=== PATIENT | female | born 1960 | race Caucasian/White ===

== ENCOUNTER 2016-10-24 23:14 | Emergency (ER) | payer OTHER ==
[2016-10-24 23:21] VITALS: TEMP 97.9; O2SAT 94
[2016-10-24] MEDS ORDERED: IPRATROPIUM/ALBUTEROL 3 ML DEYVIAL ONE (23:32)
--- NOTE | 2016-10-24 23:38 | EDPHY ---
H & P Smoking Status: Former smoker Time Seen by Provider: 10/24/16 23:26 HPI/ROS: CHIEF COMPLAINT: Cough, shortness of breath HISTORY OF PRESENT ILLNESS: 56-year-old female presents to the emergency department feeling short of breath and having productive cough. Patient has a known history of asthma. She is typically followed by her doctor at [facility]. She saw them recently and was diagnosed with enterovirus. She was started on Spiriva. She continues to have ongoing coughing and was having difficulty breathing this evening. She did try 1 albuterol nebulizer without relief. She denies fevers or chills. She denies abdominal pain or vomiting. No diarrhea. No rash. She has now developed headache from coughing. No ill contacts. No recent travel. REVIEW OF SYSTEMS: Constitutional: No fever, no chills. Eyes: No double or blurry vision. ENT: No sore throat. Respiratory: Cough, shortness of breath Cardiac: No chest pain. Gastrointestinal: No abdominal pain, vomiting or diarrhea. Genitourinary: No dysuria. Musculoskeletal: No neck or back pain. Skin: No rashes. Neurological: headache. (Lisha Vuong) Past Medical/Surgical History: Asthma (Lisha Vuong) Social History: Has a life partner in [place] (Lisha Vuong) Physical Exam: General Appearance: Alert, no distress. Temperature 36.6, 94% on room air. Eyes: Pupils equal and round. Extraocular motions are all intact. ENT: Mouth: Mucous membranes moist. Respiratory: Diffuse expiratory wheezing throughout. No respiratory distress. Actively coughing. Cardiovascular: Regular rate and rhythm. Gastrointestinal: Abdomen is soft and nontender, no masses, no rebound or guarding, bowel sounds normal. Neurological: Alert and oriented x 3, cranial nerves II through XII grossly intact Skin: Warm and dry, no rashes. Musculoskeletal: Nontender to palpate along the cervical, thoracic or lumbar spine. Neck is supple. Extremities: Full range of motion and no peripheral edema. Psychiatric: Patient is oriented X 3, there is no agitation. (Lisha Vuong) Constitutional: Initial Vital Signs Temperature (C) 36.6 C 10/24/16 23:17 Heart Rate 80 10/24/16 23:17 Respiratory Rate 18 10/24/16 23:17 Blood Pressure 151/90 H 10/24/16 23:17 O2 Sat (%) 94 10/24/16 23:17 O2 Delivery Mode Room Air Allergies/Adverse Reactions: erythromycin base Allergy (Verified 10/24/16 23:21) Tide detergent Allergy (Uncoded 10/24/16 23:21) Home Medications: Medication Instructions Recorded Albuterol 10/24/16 Dulera 200 Mcg/5 Mcg Inhaler 10/24/16 Spiriva Inhaler (RX) 10/24/16 predniSONE 60 mg PO DAILY 4 Days 10/25/16 Medical Decision Making ED Course/Re-evaluation: 56-year-old female presents to the emergency department feeling short of breath and having ongoing cough. She has a known history of asthma. The patient was given a DuoNeb followed by albuterol nebulizer. She was feeling better although continued to have some expiratory wheezing. O2 saturation remained in the mid 90s. The patient will be started on oral prednisone. The patient does not feel that she needs an antibiotic and I would agree. She is afebrile. She was just at [facility] and they diagnosed with a viral illness. She will continue her albuterol nebulizer. She will continue oral prednisone for 5 days total. She was told to return to the emergency department if she developed fever, difficulty breathing, or if she felt worse in any way. (Lisha Vuong) PHYSICIAN DOCUMENTATION: The patient was evaluated and managed by the Physician Button Buttonhole Marker. My co- signature indicates that I have reviewed this chart and I agree with the findings and plan of care as documented. I am the secondary supervising physician. (Teresita Ritchie) Differential Diagnosis: Including but not limited to viral upper respiratory infection, bronchitis, pneumonia, influenza (Lisha Vuong) - Data Points Medications Given: Discontinued Medications Prednisone (Prednisone) 60 mg PO EDNOW ONE Stop: 10/25/16 00:11 Last Admin: 10/25/16 00:15 Dose: 60 mg Departure - Departure Disposition: Home, Routine, Self-Care Clinical Impression: Acute bronchitis Qualifiers: Bronchitis organism: unspecified organism Qualified Code(s): J20.9 - Acute bronchitis, unspecified Condition: Good Instructions: Acute Bronchitis (ED) Additional Instructions: Prednisone daily for 5 days. Continue albuterol nebulizer every 4 hours. Return to the emergency department if you develop fever, difficulty breathing, or if you feel worse in any way. Referrals: Carlita Carreon MD [Primary Care Provider] - As per Instructions Prescriptions: predniSONE 60 mg PO DAILY 4 Days
[2016-10-24] MEDS ORDERED: ALBUTEROL 3 ML DEYVIAL ONE (23:41)
[2016-10-25] MEDS ORDERED: predniSONE 20 MG TAB PO ONE (00:10)
[2016-10-25 00:22] VITALS: BP 145/92; PULSE 82; RESP 19
[2016-10-25] MEDS ORDERED: ALBUTEROL 3 ML DEYVIAL IH ONE (23:30)
[2016-10-25] MEDS ORDERED: IPRATROPIUM/ALBUTEROL 3 ML DEYVIAL IH ONE (23:30)
== END 2016-10-25 00:22 | disposition home or self-care (01) ==
DX: J20.9 Acute bronchitis, unspecified (principal); J45.909 Unspecified asthma, uncomplicated

== ENCOUNTER → 2016-10-29 | Outpatient (CLI) | payer OTHER | LOC: FIMAGING 14:57 | DX: Z12.31 Encounter for screening mammogram for malignant neoplasm of breast (principal); Z80.3 Family history of malignant neoplasm of breast | CPT/HCPCS: G0202 ==

== ENCOUNTER → 2017-06-03 | Outpatient (CLI) | payer OTHER | LOC: FIMAGING 10:40 | PROVIDERS: ATTEND Internal Medicine Pulmonary Disease | DX: Z09 Encounter for follow-up examination after completed treatment for conditions other than malignant neoplasm (principal); R91.1 Solitary pulmonary nodule ==

== ENCOUNTER 2017-06-09 09:59 | Emergency (ER) | payer OTHER ==
[2017-06-09] MEDS ORDERED: IPRATROPIUM/ALBUTEROL 3 ML DEYVIAL IH ONE (12:09)
--- NOTE | 2017-06-09 12:10 | EDPHY ---
General Narrative: CHIEF COMPLAINT: Asthma, shortness of breath HISTORY OF PRESENT ILLNESS: Patient complains of cough, wheezing over the past 2 days. This was an abrupt onset. Moderate to severe. She has been coughing so severely it is hard for to sleep. No chest pain but some shortness of breath with the wheezing. She has used her albuterol with no improvement. Went to her drill grinder yesterday. They prescribed a prednisone taper and Ceftin. She took the Ceftin but did not take the prednisone until this morning because she does not like how it makes her feel. She has no abdominal pain. No nausea or vomiting. No headache. No neck pain or stiffness. No body aches or malaise. No other associated complaints or modifying factors. REVIEW OF SYSTEMS: Ten systems reviewed and are negative unless otherwise noted in the HPI SPECIALISTS: Telemarketer Supervisor PAST MEDICAL HISTORY: Asthma SOCIAL HISTORY: Former smoker remotely. Lives locally FAMILY HISTORY: Noncontributory EXAMINATION General Appearance: Alert, no distress Head: normocephalic, atraumatic Eyes: Pupils equal and round, no conjunctival pallor or injection ENT, Mouth: Mucous membranes moist. Airway patent Neck: Normal inspection, supple, non-tender Respiratory: Scattered rhonchi. No crackles. Some wheezing expiratory. No consolidation or diminishment. No retractions or distress Cardiovascular: Regular rate and rhythm. No murmur Neurological: A&O, nonfocal, normal gait Skin: Warm and dry, no rash. No petechiae or purpura Extremities: Nontender, no pedal edema Psychiatric: Mood and affect normal DIFFERENTIAL DIAGNOSES: Including but not limited to asthma exacerbation, viral bronchitis, bacterial bronchitis, community-acquired pneumonia MDM: 12:10 p.m. Asthma exacerbation with acute bronchitis. Vital signs were well within normal limits. She started prednisone and Ceftin within the past 24 hr. She is in no acute distress. She is wheezing, that she has agreed to a nebulizer treatment. I do not appreciate any evidence of pneumonia on auscultation. She had a CT of the chest performed 1 week ago that did not show any pneumonia. I will switch the patient to dexamethasone as she does not tolerate prednisone. I would like her to continue her Ceftin. I will add Tesprince Perles for her. Re- evaluated after the nebulizer. 12:45 p.m. Patient re-evaluated. Nebulizer treatment completed. She is feeling somewhat better. Continue with the plan as above. Prescription provided. Contact primary care physician and/or drill grinder. ED precautions discussed. She is comfortable this plan and discharged home stable condition. SUPERVISION: Patient was independently examined, but I discussed the case with my secondary supervising physician Dr. Flores - History Smoking Status: Former smoker - Objective Vital Signs: Initial Vital Signs Temperature (C) 98.8 F 06/09/17 10:05 Heart Rate 84 06/09/17 10:05 Respiratory Rate 16 06/09/17 10:05 Blood Pressure 131/73 H 06/09/17 10:05 O2 Sat (%) 96 06/09/17 10:05 O2 Delivery Mode Room Air Allergies/Adverse Reactions: erythromycin base Allergy (Verified 06/09/17 10:04) Tide detergent Allergy (Uncoded 06/09/17 10:04) Home Medications: Medication Instructions Recorded Albuterol 10/24/16 Dulera 200 Mcg/5 Mcg Inhaler 10/24/16 predniSONE 60 mg PO DAILY 4 Days tab 10/25/16 Benzonatate [Tessalon Pearles (RX)] 100 mg PO Q8 PRN #15 cap 06/09/17 Dexamethasone [Decadron 4 MG (*)] 8 mg PO DAILY #4 tab 06/09/17 Medications Given: Discontinued Medications Albuterol/Ipratropium (Duoneb) 3 ml IH EDNOW ONE Stop: 06/09/17 12:10 Last Admin: 06/09/17 12:18 Dose: 3 ml Departure - Departure Disposition: Home, Routine, Self-Care Clinical Impression: Acute bronchitis Qualifiers: Bronchitis organism: unspecified organism Qualified Code(s): J20.9 - Acute bronchitis, unspecified Asthma without status asthmaticus Qualifiers: Asthma severity: unspecified severity Asthma persistence: unspecified Asthma complication type: with acute exacerbation Qualified Code(s): J45.901 - Unspecified asthma with (acute) exacerbation Condition: Good Instructions: Asthma (ED), Acute Bronchitis (ED) Additional Instructions: 1. Discontinue your prednisone 2. Dexamethasone as prescribed 3. Tessalon Perles as prescribed 4. Contact her primary care physician for follow-up 5. ED precautions as discussed Referrals: Angie Braxton MD [Primary Care Provider] - As per Instructions Prescriptions: Benzonatate [Tessalon Pearles (RX)] 100 mg PO Q8 PRN #15 cap PRN Reason: Cough, Mild Dexamethasone [Decadron 4 MG (*)] 8 mg PO DAILY #4 tab
[2017-06-09 13:10] VITALS: BP 146/89; PULSE 73; RESP 18; TEMP 99.1; O2SAT 94
== END 2017-06-09 13:10 | disposition home or self-care (01) ==
DX: J45.901 Unspecified asthma with (acute) exacerbation (principal); J20.9 Acute bronchitis, unspecified; Z87.891 Personal history of nicotine dependence

== ENCOUNTER 2017-07-01 00:32 | Emergency (ER) | payer OTHER ==
[2017-07-01] MEDS ORDERED: NS 1,000 ML IV ONE (00:48)
[2017-07-01] MEDS ORDERED: IPRATROPIUM/ALBUTEROL 3 ML DEYVIAL IH ONE (00:48)
--- NOTE | 2017-07-01 00:48 | EDPHY ---
H & P Stated Complaint: COUGH FEVER ACHES RECENT TX FOR BRONCHITIS HPI/ROS: HPI CHIEF COMPLAINT: Shortness of breath, cough, fever HISTORY OF PRESENT ILLNESS: This patient is a very pleasant 56-year-old female significant past medical history for bronchitis, his COPD as well but not on any oxygen, she presents emergency room with ongoing cough and wheezing. Patient reports that she was recently on a cruise and in [place] she just traveled back to [place] today. For the past week she has had a bronchitic sounding cough and congestion in her chest. She denies any pleuritic pain. Denies chest pain. She does state that she had a low-grade fever. She is wheezing. She gave herself a breathing treatment prior to arrival but it did not help. She presents emergency room with worsening shortness of breath. Cough. Past Medical History: Bronchitis, COPD Past Surgical History: No recent surgery Social History: Denies daily use of drugs alcohol tobacco. Family History: Noncontributory ROS REVIEW OF SYSTEMS: A comprehensive 10 point review of systems is otherwise negative aside from elements mentioned in the history of present illness. Exam Constitutional appears well nontoxic triage nursing summary reviewed, vital signs reviewed, awake/alert. 90% room air sat upon arrival. Eyes normal conjunctivae and sclera, EOMI, PERRLA. HENT normal inspection, atraumatic, moist mucus membranes, no epistaxis, neck supple/ no meningismus, no raccoon eyes. Respiratory decreased breath sounds bilaterally, audible wheezing throughout all lung acosta, crackles at bilateral bases, bronchitic sounding cough Cardiovascular rate normal, regular rhythm, no murmur, no edema, distal pulses normal. Gastrointestinal soft, non-tender, no rebound, no guarding, normal bowel sounds, no distension, no pulsatile mass. Genitourinary no CVA tenderness. Musculoskeletal no midline vertebral tenderness, full range of motion, no calf swelling, no tenderness of extremities, no meningismus, good pulses, neurovascularly intact. Skin pink, warm, & dry, no rash, skin atraumatic. Neurologic awake, alert and oriented x 3, AAOx3, moves all 4 extremities equally, motor intact, sensory intact, CN II-XII intact, normal cerebellar, normal vision, normal speech. Psychiatric normal mood/affect. Heme/Lymph/Immune no lymphadenopathy. Differential Diagnosis: Includes but is not limited to in a particular order acute bronchitis, reactive airway disease, pneumothorax, pneumonia, influenza, viral syndrome, viral pneumonia, bacterial pneumonia Medical Decision Making: Plan for this patient IV establishment with blood draw , IV fluid bolus, DuoNeb breathing treatment, IV Solu-Medrol, two view chest x- ray, re-evaluate. Re-evaluation: 0248: On re-examination at this time the patient is feeling much better with DuoNeb breathing treatment. Not 100%. Her initial room air saturation was 90% . Her check x-ray does not show focal pneumonia. I do not appreciate a dense infiltrate. She has noted be influenza B positive. She has had symptoms for approximately 5-6 days. She is not a candidate for Tamiflu. However I do feel that she should go home with an albuterol inhaler and prednisone burst. Additionally return precautions have been discussed with the patient. She understands return if she feels worsening shortness of breath, high fever, vomiting or questions or concerns. Additionally recommend she stays well hydrated drink lots of fluids, Tylenol Motrin for pain and fever control. Return precautions emphasized. Source: Patient - Personal History Current Tetanus/Diphtheria Vaccine: Yes Current Tetanus Diphtheria and Acellular Pertussis (TDAP): Yes - Medical/Surgical History Hx Asthma: Yes Hx Chronic Respiratory Disease: Yes Hx Diabetes: No Hx Cardiac Disease: No Hx Renal Disease: No Hx Cirrhosis: No Hx Alcoholism: No Hx HIV/AIDS: No Hx Splenectomy or Spleen Trauma: No Other PMH: COPD, asthma, - Social History Smoking Status: Former smoker Constitutional: Initial Vital Signs Temperature (C) 37.0 C 07/01/17 00:34 Heart Rate 91 07/01/17 00:34 Respiratory Rate 18 07/01/17 00:34 Blood Pressure 130/86 H 07/01/17 00:34 O2 Sat (%) 90 L 07/01/17 00:34 O2 Delivery Mode Room Air Allergies/Adverse Reactions: erythromycin base Allergy (Verified 07/01/17 00:38) Tide detergent Allergy (Uncoded 07/01/17 00:38) Home Medications: Medication Instructions Recorded Albuterol [Proventil Inhaler HFA 1 - 2 puffs IH Q4H #1 mdi 07/01/17 (*)] Albuterol [Ventolin Hfa Inhaler] 200 puffs IH 07/01/17 Doxycycline Hyclate 100 mg PO 07/01/17 Fluticasone/Vilanterol [Breo 1 each IH 07/01/17 Ellipta 100-25 Mcg INH] guaiFENesin/PSEUDOEPHEDRNE HCL 07/01/17 [Mucinex D ER Tablet] predniSONE 60 mg PO DAILY #15 tab 07/01/17 Medical Decision Making - Data Points Laboratory Results: Laboratory Results 07/01/17 01:00 07/01/17 01:00 07/01/17 07/01/17 07/01/17 01:00 01:00 00:35 WBC 4.59 10^3/uL 10^3/uL (3.80-9.50) RBC 4.54 10^6/uL 10^6/uL (4.18-5.33) Hgb 14.1 g/dL g/dL (12.6-16.3) Hct 42.2 % % (38.0-47.0) MCV 93.0 fL fL (81.5-99.8) MCH 31.1 pg pg (27.9-34.1) MCHC 33.4 g/dL g/dL (32.4-36.7) RDW 12.9 % % (11.5-15.2) Plt Count 150 10^3/uL 10^3/uL (150-400) MPV 10.8 fL fL (8.7-11.7) Neut % (Auto) 65.2 % % (39.3-74.2) Lymph % (Auto) 25.1 % % (15.0-45.0) Kings % (Auto) 6.5 % % (4.5-13.0) Eos % (Auto) 2.6 % % (0.6-7.6) Baso % (Auto) 0.4 % % (0.3-1.7) Nucleat RBC Rel Count 0.0 % % (0.0-0.2) Absolute Neuts (auto) 2.99 10^3/uL 10^3/uL (1.70-6.50) Absolute Lymphs (auto) 1.15 10^3/uL 10^3/uL (1.00-3.00) Absolute Monos (auto) 0.30 10^3/uL 10^3/uL (0.30-0.80) Absolute Eos (auto) 0.12 10^3/uL 10^3/uL (0.03-0.40) Absolute Basos (auto) 0.02 10^3/uL 10^3/uL (0.02-0.10) Absolute Nucleated RBC 0.00 10^3/uL 10^3/uL (0-0.01) Immature Gran % 0.2 % % (0.0-1.1) Immature Gran # 0.01 10^3/uL 10^3/uL (0.00-0.10) Sodium 145 mEq/L H mEq/L (134-144) Potassium 3.6 mEq/L mEq/L (3.5-5.2) Chloride 107 mEq/L mEq/L (97-110) Carbon Dioxide 27 mEq/l mEq/l (22-31) Anion Gap 11 mEq/L mEq/L (8-16) BUN 15 mg/dL mg/dL (7-23) Creatinine 0.8 mg/dL mg/dL (0.6-1.0) Estimated GFR > 60 Glucose 121 mg/dL H mg/dL (70-100) Calcium 9.1 mg/dL mg/dL (8.5-10.4) Nasal Influenza A PCR NEGATIVE FOR FLU A (NEGATIVE) Nasal Influenza B PCR FLU B DETECTED (NEGATIVE) Influenza A,B Rapid 07/01/17 00:35 WBC RBC Hgb Hct MCV MCH MCHC RDW Plt Count MPV Neut % (Auto) Lymph % (Auto) Kings % (Auto) Eos % (Auto) Baso % (Auto) Nucleat RBC Rel Count Absolute Neuts (auto) Absolute Lymphs (auto) Absolute Monos (auto) Absolute Eos (auto) Absolute Basos (auto) Absolute Nucleated RBC Immature Gran % Immature Gran # Sodium Potassium Chloride Carbon Dioxide Anion Gap BUN Creatinine Estimated GFR Glucose Calcium Nasal Influenza A PCR Nasal Influenza B PCR Influenza A,B Rapid Cancelled Medications Given: Discontinued Medications Albuterol/Ipratropium (Duoneb) 3 ml IH EDNOW ONE Stop: 07/01/17 00:49 Last Admin: 07/01/17 01:02 Dose: 3 ml Sodium Chloride (Ns) 1,000 mls @ 0 mls/hr IV ONCE ONE; Wide Open PRN Reason: Protocol Stop: 07/01/17 00:49 Last Admin: 07/01/17 01:02 Dose: 1,000 mls Methylprednisolone Sodium Succinate (Solu-Medrol) 125 mg IVP EDNOW ONE Stop: 07/01/17 00:53 Last Admin: 07/01/17 01:02 Dose: 125 mg Oxycodone/Acetaminophen (Percocet 5/325) 1 tab PO EDNOW ONE Stop: 07/01/17 01:12 Last Admin: 07/01/17 01:14 Dose: 1 tab Departure - Departure Disposition: Home, Routine, Self-Care Clinical Impression: Bronchitis, Influenza Condition: Good Instructions: Influenza (ED), Acute Bronchitis (ED) Additional Instructions: 1. Drink lots of fluids stay well-hydrated. 2. Albuterol inhaler 2 puffs every 4 hr as needed. 3. Return emergency room if you have worsening symptoms questions or concerns. Referrals: Angie Braxton MD [Primary Care Provider] - As per Instructions Prescriptions: Albuterol [Proventil Inhaler HFA (*)] 1 - 2 puffs IH Q4H #1 mdi predniSONE 60 mg PO DAILY #15 tab
[2017-07-01] MEDS ORDERED: methylPREDNISolone SOD SUCC 125 MG/2 ML VIAL IVP ONE (00:52)
[2017-07-01] MEDS ORDERED: OXYCODONE/APAP 5/325 TAB PO ONE (01:11)
[2017-07-01] MEDS ORDERED: OXYCODONE/APAP 5/325 TAB ONE (01:12)
[2017-07-01 01:13] LABS: PLATELET COUNT 150 10^3/uL (150-400)
[2017-07-01 02:56] VITALS: BP 124/79; PULSE 81; RESP 16; TEMP 98.1; O2SAT 93
== END 2017-07-01 03:06 | disposition home or self-care (01) ==
DX: J11.1 Influenza due to unidentified influenza virus with other respiratory manifestations (principal); J40 Bronchitis, not specified as acute or chronic; E86.9 Volume depletion, unspecified; J44.9 Chronic obstructive pulmonary disease, unspecified; Z87.891 Personal history of nicotine dependence
CPT/HCPCS: 96374; J2930

== ENCOUNTER → 2017-09-26 | Outpatient (CLI) | payer OTHER | LOC: BMCIMAGING 09:56 | PROVIDERS: ATTEND Physician Assistant | DX: M19.031 Primary osteoarthritis, right wrist (principal) ==